=== PATIENT | female | born 2000 | race Caucasian/White ===

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

== ENCOUNTER 2020-11-16 11:37 | Inpatient (IN) ==
[2020-11-16 10:19] LABS: Basophils % 0.3 %; Eosinophils % 0.3 %; Hemoglobin 13.9 g/dL (11.5-15.4); Immature Granulocytes % 0.5 % (0-4); Lymphocytes # 2.8 K/mcL (0.6-4.6); Mean Corpuscular HGB Conc 33.1 g/dL (31.6-35.5); Mean Corpuscular Hemoglobin 29.1 pg (28.0-33.3); Mean Corpuscular Volume 87.9 fL (83.0-100.0); Mean Platelet Volume 10.5 fL (9.4-12.4); Monocytes # 0.5 K/mcL (0.0-1.3); Monocytes % 4.2 %; Neutrophils # 8.1 K/mcL (1.6-8.9); Platelet Count 274 K/mcL (140-400); Red Blood Count 4.78 M/mcL (3.82-4.97); Segmented Neutrophils % 70.7 %; White Blood Count 11.5 K/mcL (4.3-11.1)
[2020-11-16 10:51] LABS: Influenza A PCR Negative (Negative); Influenza B PCR Negative (Negative); Resp. Syncytial Virus PCR Negative (Negative)
[2020-11-16 10:52] LABS: SARS-CoV-2 by PCR (In House) Negative (Negative)
[2020-11-16 10:53] LABS: Amphetamine Screen,Urine Negative ng/mL (Cutoff=1000); Barbiturate Screen,Urine Negative ng/mL (Cutoff=200); Benzodiazepines Screen,Urine Negative ng/mL (Cutoff=200); Cannabinoid Screen,Urine Positive ng/mL (Cutoff = 50); Cocaine Screen,Urine Negative ng/mL (Cutoff= 300); Opiate Screen,Urine Negative ng/mL (Cutoff=300); Phencyclidine Screen,Urine Negative ng/mL (Cutoff=25)
[~2020-11-16 11:37] MED LIST changes: +*HR* FentaNYL (PF) 100 MCG/2 ML VIAL EP ONE; +EPHEDrine 50 MG/ML VIAL IVP PRN; +Epidural Premix (fent/bupiv) 110 ML EP SCH; -Morphine Sulfate 2 MG/ML SYRINGE IVP ONE; -Ondansetron 4 MG/2 ML VIAL IVP ONE; +Ondansetron 4 MG/2 ML VIAL IVP PRN; -Penicillin G Potassium 5,000,000 UNIT in 0.9 % Sodium Chloride Mini Bag 100 ML IVPB ONE; +Ringers Solution, Lactated 1,000 ML IVC SCH; +Ringers Solution, Lactated 1,000 ML ONE; +Ropivacaine/PF 0.2% 20 ML VIAL EP ONE
[2020-11-16] MEDS ORDERED: *HR* FentaNYL (PF) 100 MCG/2 ML VIAL ONE (15:33)
[2020-11-16] MEDS ORDERED: Benzocaine/Menthol 56 GM AEROSOL SPRAY TP PRN (16:35)
[2020-11-16] MEDS ORDERED: Oxytocin 20 units/ LR 1000 mL 20 UNIT/1,000 ML BAG IVC ONE (16:35)
[2020-11-16] MEDS ORDERED: Rho Immune Globulin 1,500 UNIT SYRINGE IM PRN (16:35)
[2020-11-16] MEDS ORDERED: Lanolin 7 G OINT...G. TP PRN (16:35)
[2020-11-16] MEDS ORDERED: Ondansetron ODT 4 MG TAB.RAPDIS SL PRN (16:35)
[2020-11-16] MEDS ORDERED: Measles/Mumps/Rubella Vacc 0.5 ML VIAL SQ PRN (16:35)
[2020-11-16] MEDS ORDERED: Oxytocin 20 units/ LR 1000 mL 20 UNIT/1,000 ML BAG IVC SCH (16:35)
[2020-11-16] MEDS: Ibuprofen 600 MG TABLET PO SCH (17:53)
[2020-11-16] MEDS: Acetaminophen 325 MG TABLET PO SCH (17:54)
[2020-11-16 18:31] VITALS: O2SAT 98
[2020-11-17] MEDS: Acetaminophen 325 MG TABLET PO SCH ×3 (03:49→17:21)
[2020-11-17] MEDS: Ibuprofen 600 MG TABLET PO SCH ×3 (03:49→17:22)
[2020-11-17] MEDS: Prenatal Vit/FA 1 EACH TABLET PO SCH (08:45)
[2020-11-18] MEDS: Ibuprofen 600 MG TABLET PO SCH ×2 (00:01→05:52)
[2020-11-18] MEDS: Acetaminophen 325 MG TABLET PO SCH ×2 (05:51)
[2020-11-18] MEDS: Prenatal Vit/FA 1 EACH TABLET PO SCH (07:45)
[2020-11-18 08:06] VITALS: PULSE 69
[2020-11-18 08:10] VITALS: BP 122/79; TEMP 97.8
== END 2020-11-18 12:29 | disposition home or self-care (01) | DRG 560 ==
LOC: 1NENULAB → 1NENUOBS 16:00
PROVIDERS: ADMIT Obstetrics & Gynecology; ATTEND Obstetrics & Gynecology